=== PATIENT | male | born 1930 | race Caucasian/White ===

== ENCOUNTER → 2019-08-23 | Outpatient (CLI) | payer MEDICARE, OTHER ==
--- NOTE | 2019-08-24 21:17 | CON ---
[address] [address] CONSULTATION Name: MARU SUMMERS Room: [facility]#: [id number] Admission: 08/23/19 Attend Phys: Lance Urrutia MD Discharge: Date of : [birth year] Report #: [id number] THIS REPORT FOR: //name// cc: Diamante Nguyen MD, Sarah N. MD ~ THIS REPORT FOR: //name// CC: Lance Mead DATE OF SERVICE: 08/23/2019 [facility] RADIATION ONCOLOGY CONSULT NOTE REFERRING PHYSICIANS: Include Dr. Porter, Dr. Daisy Mead and Dr. Diamante Rao. 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 HISTORY OF PRESENT ILLNESS: The patient was treated in the past for skin cancers by Dr. Herrera. Back in 2011, the patient received radiation therapy to the right arm for skin cancer. He received radiation therapy from 04/04/2012-05/21/2012. He was prescribed 4480 cGy to that area in 280 cGy fractions with 6 MV photons with [place]ER/RPO recinos, followed by a 1120 cGy Boost in 280 cGy fractions for a cumulative dose of 5600 cGy. Prior to that, he had undergone a wide local excision of the lesion involving that right arm on 12/05/2011. 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 Then, he received postoperative radiation therapy and the patient ended up having further surgery for skin cancer on the right cheek. He also had further surgery on that right arm for recurrent cancer with placement of a graft in that area. So, the one on the cheek was operated on 08/13/2013 and that was a moderately differentiated squamous cell cancer and ultimately the margins were negative. He had a split-thickness graft placed on his arm, when he had recurrent cancer in that area on 01/21/2014 with additional repair and reconstruction. More recently, he developed a small lesion on the right neck and he had a biopsy by Dr. Mead on 06/07/2019 which revealed a well-differentiated invasive squamous cell cancer and he presents for radiation therapy. The patient's ambulation is limited. His son takes care of him. [place] [address] CONSULTATION Name: MARU SUMMERS Room: [facility]#: [id number] Admission: 08/23/19 Attend Phys: Lance Urrutia MD Discharge: Date of : [birth year] Report #: [id number] MEDICATIONS: Include acetaminophen as needed, iron sulfate as needed, and omeprazole. ALLERGIES: VANCOMYCIN AND SULFA. FAMILY HISTORY: Father had skin cancer. 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 He is . He has 2 sons and a daughter. Ethanol: he does not drink alcohol. Cigarettes: he does not smoke. REVIEW OF SYSTEMS: GENERAL: He denied having any fevers or chills. SKIN: did not have any color changes. LYMPH NODES: He may have had a small lipoma involving the right axilla. ENDOCRINE: He denied having any hot or cold intolerance. HEMATOLOGY AND IMMUNOLOGY: He denied having any anemia or recent bleeding. MUSCULOSKELETAL: He denied having any arthritis. HEAD AND NECK: He denied having any headaches. RESPIRATORY: He denied having shortness of breath. CARDIOVASCULAR: He denied having any palpitations. GASTROINTESTINAL: He denied having vomiting. NEUROLOGIC: He is in a wheelchair. GENITOURINARY: He did not have complaints of hematuria. PHYSICAL EXAMINATION: VITAL SIGNS: The patient's height was 5 feet 9 inches, weight was 172 pounds as per the patient since he is wheelchair bound, blood pressure was 112/79, pulse 89, oxygen saturation 95%, respirations 20, temperature 97.3 degrees Fahrenheit. LYMPH NODES: The patient had no cervical, supraclavicular lymphadenopathy. EYES: Pupils were equal, round, reactive to light and accommodation. Extraocular movement was intact. HEENT, EAR, NOSE AND THROAT: Nose is Intact. HEART: Had a regular rate and rhythm without murmur. LUNGS: were clear to auscultation. ABDOMEN: Not tender. Spleen was not palpable. Liver was at the costal margin. EXTREMITIES: Had no clubbing, cyanosis or edema. NEUROLOGIC: Cranial nerves II to XII were intact. Sensation was intact. The patient had 4/5 strength in his extremities and is wheelchair bound. On the neck, he has a 3 cm. x 1.2 cm crusty lesion consistent with a 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 Further resection, could be one option versus radiation therapy. The efficacy of radiation therapy can be found in the article with the title "radiotherapy for epithelial skin cancer" . That study from [facility] was published in 2000 in the International Journal of Radiation Oncology Biology Physics and one of the authors was Dr. Rider. They had 468 patients with 531 lesions treated with radiation therapy, 389 of those lesions were basal cell cancers, 142 were squamous cell cancers. The overall tumor control rate was 89%. The patient with basal cell cancers had a 92% overall control rate and those with squamous cell cancers had a 80% control rate. So the risks, benefits, logistics were explained to the patient and his son and they wanted to go ahead and proceed, so they gave their witnessed informed consent to proceed with radiation therapy. Orders will be written to schedule him for simulation. Thank you very much for this consult. <ELECTRONICALLY SIGNED> By: Lance Urrutia MD 08/24/19 [id number] Urrutia MD /nt
== END ==
LOC: M.RTH 09:30
DX: Z51.0 Encounter for antineoplastic radiation therapy (principal); Z88.2 Allergy status to sulfonamides; Z88.8 Allergy status to other drugs, medicaments and biological substances; Z79.899 Other long term (current) drug therapy